=== PATIENT | male | born 1955 | race Caucasian/White ===

== ENCOUNTER 2024-05-30 02:05 | Inpatient (IN) | payer MEDICARE, MEDICAID ==
[2024-05-30] VITALS (12 sets, daily range): BP systolic 100–155; BP diastolic 67–91; PULSE 73–84; RESP 16–25; TEMP 97.6–98.9; O2SAT 97–98
[~2024-05-30] VITALS: Ht 170.2 cm; Wt 82.6 kg
[2024-05-30 02:28] LABS: BASOPHILS % 1.1 % (0.0-2.0); EOSINOPHILS % 2.4 % (0.0-5.0); HEMATOCRIT. 47.4 % (42.0-52.0); HEMOGLOBIN. 15.6 g/dL (14.0-18.0); LYMPHOCYTES % 31.3 % (20.0-50.0); MEAN CORPUSCULAR HEMOGLOBIN 28.3 pg (28.0-32.0); MEAN CORPUSCULAR VOLUME 85.9 fL (80.0-94.0); MEAN PLATELET VOLUME 9.6 fl (7.4-10.4); MONOCYTES % 6.6 % (2.0-8.0); NEUTROPHILS % 58.6 % (40.0-76.0); PLATELET 174 x1000/uL (130-400); RED BLOOD CELL COUNT 5.52 mill/uL (4.7-6.1); RED CELL DISTRIBUTION WIDTH 15.5 % (11.6-14.6); WHITE BLOOD COUNT 12.9 x1000/uL (4.5-11.0)
[2024-05-30] MEDS: IPRATROPIUM BROMIDE (0.02%) 0.5MG/2.5ML NEB HHN STA (02:31)
[2024-05-30] MEDS: ALBUTEROL (0.083%) 2.5MG/3ML NEB HHN STA (02:31)
[2024-05-30 02:35] LABS: CHLORIDE 104 mEq/L (98-107); POTASSIUM 3.5 mEq/L (3.5-5.1); SODIUM 137 mEq/L (136-145)
[2024-05-30 02:36] LABS: CALCIUM 9.3 mg/dL (8.7-10.4); CARBON DIOXIDE 27 mEq/L (21-32)
[2024-05-30] MEDS: METHYLPREDNISOLONE SOD SUCC 125MG/2ML (ACT-O-VIAL) IV STA (02:39)
[2024-05-30] MEDS: MAGNESIUM 2 G PREMIX 50 ML IV ONE (02:39)
[2024-05-30 02:41] LABS: CREATININE 1.4 mg/dL (0.6-1.3); ETHANOL BLOOD < 10 mg/dL (<10); GLUCOSE 334 mg/dL (70-105); UREA NITROGEN BLOOD 15 mg/dL (9-23)
[2024-05-30 02:42] LABS: LACTIC ACID 2.9 mmol/L (0.4-2.0)
[2024-05-30 02:54] LABS: BG BASE EXCESS 0.3 mmol/L (-2.0-2.0); BG CARBOXYHEMOGLOBIN 2.4 % (0.5-1.5); BG FRACTION INSPIRED OXYGEN 100; BG METHEMOGLOBIN 0.1 % (0.0-1.5); BG OXYHEMOGLOBIN 97.5 % (94.0-97.0); BG PCO2 40.8 mmHg (35.0-45.0); BG PH 7.406 (7.350-7.450); BG SAMPLE SITE RIGHT RADIAL; BG TOTAL HEMOGLOBIN 15.8 g/dL (12.0-18.0); BG VENT MODE MASK - BIPAP
[2024-05-30 03:07] LABS: TROPONIN I HIGH SENSITIVITY 328 ng/L (3.0-53)
[2024-05-30] MEDS ORDERED: HEPARIN BOLUS PRN aPTT <30 IV (03:30)
[2024-05-30] MEDS ORDERED: HEPARIN BOLUS PRN aPTT 30-44 IV (03:30)
[2024-05-30] MEDS: ASPIRIN 325MG EC TABLET PO NR (03:45)
[2024-05-30] MEDS: SODIUM CHLORIDE 0.9% 250 ML IV ONE (03:46)
[2024-05-30] MEDS: PIPERACILLIN/TAZO 3.375G/50ML 50 ML IV NR (03:46)
[2024-05-30] MEDS: HEPARIN 60 UNITS/KG BOLUS IV SCH (05:19)
[2024-05-30] MEDS: HEPARIN 25,000 UNITS PREMIX 250 ML IV SCH (05:23)
[2024-05-30] MEDS: VANCOMYCIN 1.5GM/250ML 250 ML IV NR (05:32)
[2024-05-30] MEDS ORDERED: DEXTROSE 50% WATER 50ML SYRINGE IV PRN (06:45)
[2024-05-30] MEDS ORDERED: ACETAMINOPHEN 325MG TABLET PO PRN (06:45)
[2024-05-30] MEDS ORDERED: CLONIDINE 0.1MG TABLET PO PRN (06:45)
[2024-05-30] MEDS ORDERED: ZOLPIDEM TARTRATE 5MG TABLET PO PRN (06:45)
[2024-05-30] MEDS ORDERED: NITROGLYCERIN 0.4MG TABLET SL SL PRN (06:45)
[2024-05-30] MEDS ORDERED: DOCUSATE SODIUM 100MG CAPSULE PO PRN (06:45)
[2024-05-30] MEDS ORDERED: IPRATROPIUM/ALBUTEROL 0.5-3(2.5)MG/3ML NEB NEB PRN (06:45)
[2024-05-30] MEDS ORDERED: ONDANSETRON HCL 4MG/2ML INJ IV PRN (06:45)
[2024-05-30] MEDS ORDERED: MAGNESIUM/ALUMINUM HYDROXIDE/SIMETHICONE 30ML UDC PO PRN (06:45)
[2024-05-30 06:51] LABS: IRON 54 ug/dL (65-175)
[2024-05-30 06:52] LABS: TRIGLYCERIDE 170 mg/dL (0-150)
[2024-05-30 06:53] LABS: LDL CHOLESTEROL 116 mg/dL (5-100)
[2024-05-30 06:54] LABS: CHOLESTEROL 161 mg/dL (<200); HDL CHOLESTEROL 36 mg/dL (>55); TOTAL IRON BINDING CAPACITY 342 ug/dl (250-425)
[2024-05-30 06:57] LABS: T4 FREE 1.37 ng/dL (0.89-1.76); THYROID STIMULATING HORMONE 1.03 uIU/mL (0.55-4.78)
[2024-05-30 07:49] LABS: FOLIC ACID (FOLATE) SERUM 13.79 ng/mL (>5.38)
[2024-05-30 07:50] LABS: VITAMIN B12 SERUM 451 pg/mL (211-911)
[2024-05-30 08:45] LABS: INR 0.9; PROTHROMBIN TIME 10.5 sec (9.6-11.0)
[2024-05-30] MEDS: BLOOD SUGAR DIAGNOSTIC STRIP TEST SCH (09:00)
[2024-05-30] MEDS: FUROSEMIDE 40MG/4ML VIAL IVP SCH (10:10)
[2024-05-30] MEDS: METOPROLOL TARTRATE 25MG TABLET PO SCH (10:11)
[2024-05-30] MEDS: FAMOTIDINE 20MG TABLET PO SCH (10:12)
[2024-05-30] MEDS: SPIRONOLACTONE 25MG TABLET PO SCH (10:12)
[2024-05-30] MEDS: INSULIN GLARGINE 100 UNITS/ML SUBCUT SCH ×2 (10:16→20:54)
[2024-05-30] MEDS: ENOXAPARIN 100MG/ML SYR SUBCUT NR (10:18)
[2024-05-30] MEDS: ASPIRIN 325MG EC TABLET PO SCH (10:19)
[2024-05-30] MEDS: INSULIN LISPRO 100 UNITS/ML SUBCUT SCH ×2 (10:32→12:29)
[2024-05-30 16:07] LABS: CREATINE KINASE MB FRACTION 3.1 ng/mL (0.5-3.6)
[2024-05-30] MEDS: MONTELUKAST SODIUM 10MG TABLET PO SCH (16:27)
[2024-05-30] MEDS: IPRATROPIUM/ALBUTEROL 0.5-3(2.5)MG/3ML NEB HHN SCH (16:28)
[2024-05-30] MEDS ORDERED: PNEUMOCOCCAL 23-VAL P-SAC VAC 0.5 ML IM ONE (16:45)
[2024-05-30 19:30] LABS: HEPATITIS B SURFACE ANTIGEN NEGATIVE (Negative)
[2024-05-30 19:51] LABS: HEPATITIS C AB NON REACTIVE (Neg) (Negative)
[2024-05-30] MEDS: GUAIFENESIN 200MG/10ML SUGAR FREE UDC PO PRN (20:50)
[2024-05-30] MEDS: ACETAMINOPHEN 325MG TABLET PO PRN (20:50)
[2024-05-30] MEDS: LORATADINE 10MG TABLET PO SCH (20:50)
[2024-05-30] MEDS: ENOXAPARIN 100MG/ML SYR SUBCUT SCH (20:53)
[2024-05-30] MEDS: BUDESONIDE 0.5MG/2ML NEB HHN SCH (21:15)
[2024-05-30 22:55] LABS: CREATINE KINASE MB FRACTION 2.7 ng/mL (0.5-3.6)
[2024-05-31] VITALS (15 sets, daily range): BP systolic 105–136; BP diastolic 62–80; PULSE 75–85; RESP 16–27; TEMP 97–97.9; O2SAT 97–99
[2024-05-31 06:32] LABS: BASOPHILS % 0.6 % (0.0-2.0); CHLORIDE 103 mEq/L (98-107); EOSINOPHILS % 0.1 % (0.0-5.0); HEMATOCRIT. 40.7 % (42.0-52.0); HEMOGLOBIN. 13.5 g/dL (14.0-18.0); LYMPHOCYTES % 11.1 % (20.0-50.0); MEAN CORPUSCULAR HEMOGLOBIN 28.3 pg (28.0-32.0); MEAN CORPUSCULAR HGB CONC 33.3 g/dL (31.0-37.0); MEAN CORPUSCULAR VOLUME 85.2 fL (80.0-94.0); MEAN PLATELET VOLUME 9.9 fl (7.4-10.4); MONOCYTES % 5.9 % (2.0-8.0); NEUTROPHILS % 82.3 % (40.0-76.0); PLATELET 128 x1000/uL (130-400); POTASSIUM 3.6 mEq/L (3.5-5.1); RED BLOOD CELL COUNT 4.77 mill/uL (4.7-6.1); RED CELL DISTRIBUTION WIDTH 15.7 % (11.6-14.6); SODIUM 136 mEq/L (136-145); WHITE BLOOD COUNT 14.2 x1000/uL (4.5-11.0)
[2024-05-31 06:35] LABS: CARBON DIOXIDE 24 mEq/L (21-32)
[2024-05-31 06:36] LABS: CALCIUM 9.4 mg/dL (8.7-10.4)
[2024-05-31 06:40] LABS: CREATININE 1.1 mg/dL (0.6-1.3); GLUCOSE 271 mg/dL (70-105)
[2024-05-31 06:41] LABS: ALANINE AMINOTRANSFERASE 50 IU/L (10-49); UREA NITROGEN BLOOD 24 mg/dL (9-23)
[2024-05-31 06:42] LABS: ALBUMIN 3.7 g/dL (3.2-4.8)
[2024-05-31 06:43] LABS: ASPARTATE AMINOTRANSFERASE 45 IU/L (<34); BILIRUBIN TOTAL 0.4 mg/dL (0.1-1.0); PHOSPHORUS 3.3 mg/dL (2.5-4.9); PROTEIN TOTAL 6.3 g/dL (6.0-8.3)
== END 2024-05-31 21:51 | disposition short-term general hospital (02) | DRG 189 ==
LOC: ER 02:23 → 5EST 04:05 → EDBEDREQTM 04:13 → EDBEDREQ 04:13 → EDBEDREQSVC 05:54
PROVIDERS: ADMIT Internal Medicine; ATTEND Internal Medicine
PROC: 5A09357 Assistance with Respiratory Ventilation, Less than 24 Consecutive Hours, Continuous Positive Airway Pressure (ICD-10-PCS; principal; 2024-05-30)
DX: J96.01 Acute respiratory failure with hypoxia (principal); I21.A1 Myocardial infarction type 2; I50.43 Acute on chronic combined systolic (congestive) and diastolic (congestive) heart failure; N17.0 Acute kidney failure with tubular necrosis; J44.1 Chronic obstructive pulmonary disease with (acute) exacerbation; J45.901 Unspecified asthma with (acute) exacerbation; E87.20 Acidosis, unspecified; D72.10 Eosinophilia, unspecified; Z20.822 Contact with and (suspected) exposure to COVID-19; E11.9 Type 2 diabetes mellitus without complications; F17.210 Nicotine dependence, cigarettes, uncomplicated; I11.0 Hypertensive heart disease with heart failure; I25.10 Atherosclerotic heart disease of native coronary artery without angina pectoris; J32.9 Chronic sinusitis, unspecified; K21.9 Gastro-esophageal reflux disease without esophagitis; Z95.1 Presence of aortocoronary bypass graft; Z95.810 Presence of automatic (implantable) cardiac defibrillator; Z79.899 Other long term (current) drug therapy
CPT/HCPCS: 36415; 36600; 71045; 76770; 80048; 80053; 80061; 80320; 82375; 82550; 82553; 82607; 82746; 82805; 82962; 83036; 83540; 83550; 83605; 83735; 83880; 84100; 84145; 84439; 84443; 84484; 85025; 85379; 86705; 87340; 87426; 93005; 93970; 94640; 94660; 99285; J1644; J1650; J1815; J1940; J2543; J2919; J3370; J3475; J7626; G0480

== ENCOUNTER 2024-08-16 15:17 | Inpatient (IN) | payer MEDICARE, MEDICAID ==
[~2024-08-16] VITALS: Ht 170.2 cm; Wt 90.8 kg
[2024-08-16] MEDS: METHYLPREDNISOLONE SOD SUCC 125MG/2ML (ACT-O-VIAL) IV STA (15:38)
[2024-08-16] MEDS ORDERED: ALBUTEROL (0.083%) 2.5MG/3ML NEB HHN STA (15:38)
[2024-08-16] MEDS ORDERED: IPRATROPIUM BROMIDE (0.02%) 0.5MG/2.5ML NEB HHN STA (15:38)
[2024-08-16 15:54] LABS: BASOPHILS % 0.6 % (0.0-2.0); EOSINOPHILS % 1.3 % (0.0-5.0); HEMATOCRIT. 41.7 % (42.0-52.0); HEMOGLOBIN. 13.8 g/dL (14.0-18.0); LYMPHOCYTES % 12.3 % (20.0-50.0); MEAN CORPUSCULAR HGB CONC 33.2 g/dL (31.0-37.0); MEAN CORPUSCULAR VOLUME 87.5 fL (80.0-94.0); MEAN PLATELET VOLUME 10.1 fl (7.4-10.4); MONOCYTES % 7.2 % (2.0-8.0); NEUTROPHILS % 78.6 % (40.0-76.0); PLATELET 112 x1000/uL (130-400); RED BLOOD CELL COUNT 4.76 mill/uL (4.7-6.1); RED CELL DISTRIBUTION WIDTH 15.5 % (11.6-14.6); WHITE BLOOD COUNT 11.3 x1000/uL (4.5-11.0)
[2024-08-16 16:02] LABS: CHLORIDE 106 mEq/L (98-107); POTASSIUM 3.5 mEq/L (3.5-5.1); SODIUM 136 mEq/L (136-145)
[2024-08-16 16:03] LABS: CARBON DIOXIDE 24 mEq/L (21-32)
[2024-08-16 16:09] LABS: GLUCOSE 251 mg/dL (70-105); UREA NITROGEN BLOOD 14 mg/dL (9-23)
[2024-08-16 16:10] LABS: ALANINE AMINOTRANSFERASE 82 IU/L (10-49); ALBUMIN 3.8 g/dL (3.2-4.8); ASPARTATE AMINOTRANSFERASE 78 IU/L (<34); INR 0.9; PROTHROMBIN TIME 10.4 sec (9.6-11.0)
[2024-08-16 16:11] LABS: BILIRUBIN DIRECT 0.2 mg/dL (<=3.0); BILIRUBIN TOTAL 0.7 mg/dL (0.1-1.0); PROTEIN TOTAL 6.7 g/dL (6.0-8.3)
[2024-08-16 16:19] LABS: TROPONIN I HIGH SENSITIVITY 273 ng/L (3.0-53)
[2024-08-16 19:18] LABS: TROPONIN I HIGH SENSITIVITY 266 ng/L (3.0-53)
[2024-08-16 19:50] VITALS: PULSE 124; RESP 22; O2SAT 99
[2024-08-16] MEDS: ALBUTEROL (0.083%) 2.5MG/3ML NEB HHN NR (19:50)
[2024-08-16] MEDS: IPRATROPIUM BROMIDE (0.02%) 0.5MG/2.5ML NEB HHN NR (19:51)
[2024-08-16] MEDS: FUROSEMIDE 40MG/4ML VIAL IVP ONE (20:24)
[2024-08-16] MEDS: ENOXAPARIN 100MG/ML SYR SUBCUT NR (20:25)
[2024-08-16] MEDS: CEFTRIAXONE 2GM/50ML 50 ML IV ONE (21:12)
[2024-08-16] MEDS ORDERED: ONDANSETRON HCL 4MG/2ML INJ IV PRN (23:00)
[2024-08-16] MEDS ORDERED: CLONIDINE 0.1MG TABLET PO PRN (23:00)
[2024-08-17] VITALS (9 sets, daily range): BP systolic 124–143; BP diastolic 61–76; PULSE 72–92; RESP 18–19; TEMP 36.28068–36.78072; O2SAT 98–100
[2024-08-17] MEDS ORDERED: DEXTROSE 50% WATER 50ML SYRINGE IV PRN (00:30)
[2024-08-17] MEDS: BLOOD SUGAR DIAGNOSTIC STRIP TEST SCH (00:31)
[2024-08-17] MEDS: INSULIN LISPRO 100 UNITS/ML SUBCUT SCH (00:39)
[2024-08-17] MEDS ORDERED: IOHEXOL-300 100 ML BOTTLE ONE (02:20)
[2024-08-17] MEDS ORDERED: METF-873 PO (02:24)
[2024-08-17 07:39] LABS: CREATINE KINASE MB FRACTION 3.8 ng/mL (0.5-3.6)
[2024-08-17 08:05] LABS: POTASSIUM 4.4 mEq/L (3.5-5.1)
[2024-08-17 08:12] LABS: CREATININE 1.2 mg/dL (0.6-1.3)
[2024-08-17 08:28] LABS: HEMATOCRIT. 46.3 % (42.0-52.0); HEMOGLOBIN. 15.6 g/dL (14.0-18.0); MEAN CORPUSCULAR HEMOGLOBIN 29.7 pg (28.0-32.0); MEAN CORPUSCULAR HGB CONC 33.8 g/dL (31.0-37.0); MEAN CORPUSCULAR VOLUME 88.1 fL (80.0-94.0); PLATELET 116 x1000/uL (130-400); RED BLOOD CELL COUNT 5.26 mill/uL (4.7-6.1); RED CELL DISTRIBUTION WIDTH 15.7 % (11.6-14.6); WHITE BLOOD COUNT 9.7 x1000/uL (4.5-11.0)
[2024-08-17 08:29] LABS: DIFFERENTIAL COMMENT 1
[2024-08-17] MEDS: CLOPIDOGREL 75MG TABLET PO SCH (09:26)
[2024-08-17] MEDS: ASPIRIN 81MG TABLET PO SCH (09:26)
[2024-08-17] MEDS: ENOXAPARIN 100MG/ML SYR SUBCUT SCH (09:27)
[2024-08-17] MEDS: FUROSEMIDE 40MG/4ML VIAL IVP SCH (16:21)
[2024-08-17 17:12] LABS: CREATINE KINASE MB FRACTION 3.9 ng/mL (0.5-3.6)
[2024-08-17 17:36] LABS: PLATELET ESTIMATE DECREASED
[2024-08-17] MEDS: ATORVASTATIN CALCIUM 40MG TABLET PO SCH (21:26)
[2024-08-18] VITALS: BP 114/73; PULSE 76; RESP 18; TEMP 36.114; O2SAT 9
[2024-08-18] MEDS: CEFTRIAXONE 1GM/50ML 50 ML IV SCH (00:53)
[2024-08-18 04:00] VITALS: BP 118/76; PULSE 82; RESP 18; TEMP 36.44736; O2SAT 97
[2024-08-18 08:02] VITALS: BP 139/80; PULSE 86; RESP 18; TEMP 36.50292; O2SAT 99
[2024-08-18] MEDS: ACETAMINOPHEN 325MG TABLET PO PRN (09:11)
[2024-08-18 12:00] VITALS: BP 149/75; PULSE 89; RESP 18; TEMP 36.50292; O2SAT 99
[2024-08-18 12:44] VITALS: BP 129/76; PULSE 88; RESP 18; TEMP 36.33624; O2SAT 98
[2024-08-18] MEDS: METHYLPREDNISOLONE SOD SUCC 125MG/2ML (ACT-O-VIAL) IV SCH (15:13)
[2024-08-18] MEDS ORDERED: IPRATROPIUM/ALBUTEROL 0.5-3(2.5)MG/3ML NEB HHN SCH (16:00)
[2024-08-18 16:25] VITALS: BP 126/73; PULSE 70; RESP 20; TEMP 36.22512; O2SAT 99
[2024-08-18] MEDS ORDERED: PREDNISONE 20MG TABLET PO SCH (21:00)
== END 2024-08-18 17:10 | disposition left against medical advice (07) | DRG 280 ==
LOC: ER 15:17 → 7EST 19:59 → EDBEDREQTM 20:01 → EDBEDREQ 20:02
PROVIDERS: ADMIT Internal Medicine; ATTEND Internal Medicine
DX: I21.4 Non-ST elevation (NSTEMI) myocardial infarction (principal); I50.23 Acute on chronic systolic (congestive) heart failure; J96.01 Acute respiratory failure with hypoxia; J44.1 Chronic obstructive pulmonary disease with (acute) exacerbation; I11.0 Hypertensive heart disease with heart failure; Z53.29 Procedure and treatment not carried out because of patient's decision for other reasons; Z20.822 Contact with and (suspected) exposure to COVID-19; I25.10 Atherosclerotic heart disease of native coronary artery without angina pectoris; I25.2 Old myocardial infarction; Z95.1 Presence of aortocoronary bypass graft; Z95.810 Presence of automatic (implantable) cardiac defibrillator; Z79.82 Long term (current) use of aspirin; Z71.6 Tobacco abuse counseling
CPT/HCPCS: 36415; 71045; 74177; 80048; 80061; 80076; 82550; 82553; 82962; 83036; 83880; 84484; 85025; 87426; 93005; 93306; 93970; 94640; 99285; J0696; J1650; J1815; J1940; J2919; Q9967